=== PATIENT | female | born 1960 | race Caucasian/White ===

== ENCOUNTER 2017-09-25 21:11 | Emergency (ER) | payer OTHER ==
[~2017-09-25] VITALS: Ht 162.6 cm; Wt 90.0 kg
[2017-09-25 21:18] VITALS: TEMP 36.6; Ht 162.6 cm; Wt 90.0 kg
[2017-09-25] MEDS ORDERED: KETOROLAC TROMETHAMINE 60 MG/2 ML VIAL IM STA (21:41)
[2017-09-25] MEDS ORDERED: DEXAMETHASONE **PF** INJ 10 MG/ML VIAL IM ONE (21:45)
[2017-09-25] MEDS ORDERED: OXYCODONE/ACETAMINOPHEN 5-325 TAB PO STA (22:22)
--- NOTE | 2017-09-25 22:37 | DIAGNOSTIC IMAGING REPORT ---
C-SPINE ROUTINE 4 OR 5 VIEWS HISTORY: 57 years-old Female neck pain acute neck pain COMPARISON: None available TECHNIQUE: 5 views of the cervical spine FINDINGS: The C5-C7 vertebral bodies are not well seen on the lateral view secondary to patient positioning. No acute fracture or subluxation of the cervical spine identified. Moderate intervertebral disc space narrowing is seen at C3-C4 and C4-C5. Multilevel endplate spurring with facet arthrosis. These changes result in moderate bony foraminal narrowing on the right at C4-C5 and C6-C7 with mild stenosis at C5-C6. There is moderate left-sided bony foraminal narrowing at C3-C4 and C4-C5. Imaged lung apices are clear. No prevertebral soft tissue swelling. IMPRESSION: 1. No acute fracture or subluxation identified. 2. Intervertebral disc space narrowing with facet arthropathy and spondylitic spurring as above. The above report was generated using voice recognition software. It may contain grammatical, syntax or spelling errors. Electronically signed by: Yordan Del Rosario M.D. 09/25/2017 10:35 PM Dictated Date/Time: 09/25/2017 10:32 PM
[2017-09-25] MEDS ORDERED: ACET-1256 PO (22:43)
[2017-09-25] MEDS ORDERED: OXYCODONE IR HOME PACK PO ONE (23:15)
[2017-09-25 23:16] VITALS: BP 189/91; PULSE 53; O2SAT 94
[2017-09-25] MEDS ORDERED: PRED50TA PO (23:16)
[2017-09-25] MEDS ORDERED: OXYC1TAB3 PO (23:16)
--- NOTE | 2017-09-26 05:55 | EMERGENCY ROOM VISIT NOTE ---
History First contact with patient: 21:27 Chief Complaint: NECK PAIN Stated Complaint: PINCHED NERVE IN NECK PAIN IN BACK History of Present Illness The patient is a 57 year old female who presents to the Emergency Room with complaints of back pain that started worsening about 1 hour ago. The patient evidently has a recent history of neck problems, that began several 07/23/2017 weeks ago. Evidently she had some radicular symptoms from the neck into her arms, and went to [facility] emergency department. She evidently had an MRI at that facility on 07/23/2017 that showed mild narrowing of the spinal cord at C5-C6 and C6-C7 with increased T2 signal within the spinal cord suggesting mild cord compression. She also has broad-based disc bulging essentially from C3-C7. The patient has been following with neurosurgery in [facility], and was scheduled to have surgery performed last week. Evidently the patient has persistent tachycardia, and the surgery had to be postponed until she could follow with cardiology. The patient evidently has a cardiology appointment tomorrow. Tonight the patient was playing with her family, and states that her head went backwards while they were "horsing around ", causing her immediate return of pain and discomfort. She has not taken anything [id number] for her pain at this point. She rates the discomfort a 10/10. There is some radiation into the right arm. Review of Systems More than 10 systems were reviewed and otherwise negative with the exception of history of present illness. Past Medical/Surgical History Chronic neck pain Family History No pertinent family history Social History Smoking Status: Never Smoker Drug Use: none Marital Status: in relationship Housing Status: lives with family Current/Historical Medications Scheduled Acetaminophen (Tylenol), 1,000 MG PO PRN UD Oxycodone Immediate Rel Tab (Roxicodone Ir), 1 TAB PO Q6 Prednisone (Prednisone), 50 MG PO DAILY Physical Exam Vital Signs Date Time Temp Pulse Resp B/P (MAP) Pulse Ox O2 Delivery O2 Flow Rate FiO2 09/25/17 23:16 53 16 189/91 94 Room Air 09/25/17 21:18 36.6 59 18 123/74 95 Room Air Physical Exam VITALS: Vitals are noted on the nurse's note and reviewed by myself. Vital signs stable. GENERAL: Well-developed, well-nourished, white female, who is in no acute distress and resting comfortably. Patient is cooperative with the examination. NECK: Supple without nuchal rigidity. No lymphadenopathy. No thyromegaly. Cervical spine is tender along the midline. The patient is able to flex and extend. HEART: Regular rate and rhythm without murmurs gallops or rubs. LUNGS: Clear to auscultation bilaterally without wheezes, rales or rhonchi. No retractions or accessory muscle use. MUSCULOSKELETAL: No muscle atrophy, erythema, or edema noted. Full range of motion in all extremities. NEURO: Patient was alert and oriented to person place and time. CN II through XII grossly intact. No focal neurological deficits. Medical Decision & Procedures ER Provider Diagnostic Interpretation: C-SPINE ROUTINE 4 OR 5 VIEWS HISTORY: 57 years-old Female neck pain acute neck pain COMPARISON: None available TECHNIQUE: 5 views of the cervical spine FINDINGS: The C5-C7 vertebral bodies are not well seen on the lateral view secondary to patient positioning. No acute fracture or subluxation of the cervical spine identified. Moderate intervertebral disc space narrowing is seen at C3-C4 and C4-C5. Multilevel endplate spurring with facet arthrosis. These changes result in moderate bony foraminal narrowing on the right at C4-C5 and C6-C7 with mild stenosis at C5-C6. There is moderate left-sided bony foraminal narrowing at C3-C4 and C4-C5. Imaged lung apices are clear. No prevertebral soft tissue swelling. IMPRESSION: 1. No acute fracture or subluxation identified. 2. Intervertebral disc space narrowing with facet arthropathy and spondylitic spurring as above. Medications Administered Medications (Trade) Dose Ordered Sig/Emerita Route Start Time Stop Time Status Last Admin Dose Admin Dexamethasone Sodium Phosphate (Dexamethasone Inj Pf) 10 mg NOW ONCE IM 09/25/17 21:45 09/25/17 21:46 DC 09/25/17 21:49 10 MG Ketorolac Tromethamine (Toradol Inj) 60 mg NOW STAT IM 09/25/17 21:41 09/25/17 21:42 DC 09/25/17 21:49 60 MG Oxycodone/ Acetaminophen (Percocet 5-325mg Tab) 1 tab NOW STAT PO 09/25/17 22:22 09/25/17 22:23 DC 09/25/17 22:34 1 TAB Oxycodone HCl (Roxicodone Immediate Rel 5MG Home Pack) 1 homepack UD ONCE PO 09/25/17 23:15 09/25/17 23:16 DC 09/25/17 23:15 1 HOMEPACK ED Course A course of prednisone and OxyIR physical exam and history were performed. Nursing notes, EMR, and Medication List were personally reviewed. Patient appears to have neck pain that is acutely exacerbated. She does have some chronic neck pain and is evidently going through preoperative clearance to have this repaired in [place]. The patient was given IM Toradol, IM Decadron , and a dose of Percocet here in the department by mouth. X-rays were performed and did not show acute bony abnormality. On examination she does not have significant neurologic deficit, and did feel improved after being medicated here. I will provide the patient a short course of OxyIR and prednisone. She is to continue following with her specialists for further care and management. She was otherwise invited back to the ER with any new, worsening, or concerning symptoms. The chart was completed utilizing [employer] Speech Voice Recognition Software. Grammatical errors, random word insertions, pronoun errors, and incomplete sentences are an occasional consequence of this system due to software limitations, ambient noise, and hardware issues. Any formal questions or concerns about the content, text, or information contained within the body of this dictation should be directly addressed to the provider for clarification. . Medical Decision Differential diagnosis includes, but is not limited to: Sprain, strain, fracture , dislocation, subluxation, contusion, infection, neurologic deficit, and others Impression Primary Impression: Neck pain Departure Information Dispostion Home / Self-Care Condition GOOD Prescriptions Prednisone (Prednisone) 50 Mg Tab 50 MG PO DAILY for 4 Days, #4 TAB Prov: Drew Blum PA-C 09/25/17 Oxycodone Immediate Rel Tab (ROXICODONE IR) 5 Mg Tab 1 TAB PO Q6 for Pain, #12 TAB Prov: Drew Blum PA-C 09/25/17 Forms HOME CARE DOCUMENTATION FORM, IMPORTANT VISIT INFORMATION Patient Instructions My [facility] Additional Instructions You were seen and evaluated today on an emergency basis only. This is not a substitute for, or an effort to provide, complete comprehensive medical care. It is not possible to recognize and treat all injuries or illnesses in a single emergency department visit. For this reason it is recommended that you followup with your surgeon this week for recheck of your condition. For baseline pain relief you may alternate ibuprofen and acetaminophen every 4 hours for pain control. Take 600 mg ibuprofen (Advil) and then 4 hours later take 1000 mg acetaminophen (Tylenol). Do not take more than 3000 mg acetaminophen in a single day. Oxycodone (OxyIR) 5mg: Take ONE pill every SIX hours for breakthrough pain. Avoid alcohol, operating machinery or dangerous equipment, working on ladders or roofs, DRIVING, or situations where being under the influence may be dangerous. It is recommended to use an [id number] stool softener such as Colace, 100mg twice daily while taking this medication to avoid constipation. Take prednisone as prescribed You are welcome to return to the emergency department anytime with new, worsening, or concerning symptoms.
== END 2017-09-25 23:22 | disposition home or self-care (01) ==
LOC: C.EDB 21:13 → C.EDD 23:22
DX: M50.11 Cervical disc disorder with radiculopathy, high cervical region (principal); M50.121 Cervical disc disorder at C4-C5 level with radiculopathy; M50.122 Cervical disc disorder at C5-C6 level with radiculopathy; M50.123 Cervical disc disorder at C6-C7 level with radiculopathy; M48.02 Spinal stenosis, cervical region; Y93.83 Activity, rough housing and horseplay; G89.29 Other chronic pain